=== PATIENT | female | born 1990 | race Caucasian/White ===

== ENCOUNTER 2022-08-07 13:14 | Inpatient (IN) ==
[2022-08-07] MEDS ORDERED: LIDOCAINE 1% LOCAL 20 ML VIAL INFIL PRN (13:26)
[2022-08-07] MEDS ORDERED: OXYTOCIN 30 UNITS/500 ML BAG IV PRN ×2 (13:26→16:08)
[2022-08-07] MEDS: LACTATED RINGER'S 1,000 ML IV PRN ×2 (13:48→14:50)
--- NOTE | 2022-08-07 14:11 | History & Physical Report ---
Date of Service August 07, 2022 Assessment & Plan (1) Encounter for vaginal delivery: Plan: -Patient was instructed to come to L&D floor after having contractions this morning. -At her appointment today patient was 4cm/80%/-2. -Epidural ordered and expect vaginal delivery. Admission and Anticipated Discharge Date Admission Date: August 07, 2022 History of Present Illness Primary Care Provider: MADISON Celaya at 40 weeks 2 days confirmed via LMP. Here for vaginal delivery. She started to have contracts this morning and went to her OBGYN visit with Eron Escalera who instructed the patient to come to the L&D floor. She has some bloody mucus when wiping this morning. She denies any leakage of fluid. Complications with this include patient with h/o scoliosis (able to tolerate epidural G1) and family hx of hypoplastic left heart syndrome( echo WNL) . Has been attending OB appointments regularly. Currently taking no medications. Contractions: yes (this morning) Fluid or Blood loss: bloody mucus Movement: active Labs - Blood type: A+ - Antibody screen: negative - H.3 - Hct: 35.3 - Wbc: 13.9 - Plt: 195 - Rubella: immune - VDRL/RPR: negative - Gonorrhea: negative - Chlamydia: negative - HIV: negative - HbSAg:negative - GBS:negative - Glucose tolerance x 2 Allergies Allergy/AdvReac Type Severity Reaction Status Date / Time cefaclor [From Ceclor] Allergy Intermediate hives Verified 08/07/22 10:16 acetaminophen [From Vicodin] AdvReac vomiting Verified 08/07/22 10:16 cefdinir [From Omnicef] AdvReac vomiting Verified 08/07/22 10:16 hydrocodone [From Vicodin] AdvReac vomiting Verified 08/07/22 10:16 Home Medications Medication Instructions Recorded Confirmed Type prenat.vits,sohan,zwg-pbcd-[id number] 1 tab PO DAILY 02/17/22 08/07/22 History breast pump #1 ea 06/26/22 08/07/22 Rx Patient History Medical History Migraines Scoliosis 18 degree curvature L1-L4, 11 degree curvature T7-T12 Vesico-ureteral reflux Surgical History H/O oral surgery H/O ureter repair bilateral S/P tonsillectomy and adenoidectomy Family History Grandmother (Maternal) Breast cancer Grandfather Lung cancer Grandfather (Paternal) Diabetes Father Diabetes Asthma Dyslipidemia Mother Thyroid disorder Colonic polyp Melanoma Denies family history of Ovarian cancer Social History (Updated 02/17/22 @ 13:24 by Crystal REAL RN) Smoking Status: Never smoker Second Hand Exposure: No; Hx Alcohol Use: No Hx Substance Use: No Preferred Language: Jordanian Communication Ability: Effective [place] Required: No Beliefs That Will Affect Care: None marital status: marital status details: Eliseo Gomez (30) [phone] Current Living Situation: Family Current Living Situation Comment: FOB and 1 child. 2 dogs and 1 cats (FOB doing cat litter) current occupational status: employed current occupation: self employed - [employer] Feels Safe at Home: Yes Safety Concerns: Feels Safe At This Time Assistive Devices: Glasses Review of Systems Denies fever, chills, sweats Denies shortness of breath, difficulty breathing, chest pain, palpitations, chest pressure. Denies breast pain. Denies dysuria. Denies headache or changes in vision. Physical Exam Physical Exam: General: Alert, oriented. No acute distress. Cardiac: Regular rate and rhythm, no murmurs/rubs/gallops. Respiratory: Clear to auscultation bilaterally a/p, no wheezes/rales/rhonchi. No increased work of breathing. Symmetrical chest rise. No respiratory distress. Abdomen: Gravid; normal FHTs; Position: cephalic Pelvic: Dilation 4cm; Effacement 80; Station -[address] Segal Lower Extremities: No lower extremity edema or swelling. No deep calf pain. Dorcas's negative bilaterally Results & Data ([facility]) Vital Signs (Past 12 Hours) Vital Signs Temp Pulse Resp BP Pulse Ox 08/07/22 13:35 36.8 C 18 08/07/22 13:50 99 08/07/22 13:50 82 08/07/22 13:27 97 H 119/83 Code Status & VTE Plan VTE Prophylaxis Plan VTE Prophylaxis will be ordered: No Supervising Physician Co-Signing Physician Notes Resident Physician Supervision Note: I interviewed and examined the patient. Discussed with Dr. Hatfield and agree with findings and plan as documented in the note. Any exceptions or clarifications are listed here: 32yo @ 40 01/02, active labor. Documented By: Diana Pan, Resident Activity Tracking Resident Involvement: Resident Care Provided Care Provided: OB Delivery
[2022-08-07] MEDS ORDERED: ePHEDrine sulfate 50 MG/ML AMP ONE (14:15)
[2022-08-07] MEDS ORDERED: fentaNYL 2MCG/ML ROPIVACAINE 1.25MG/ML 100 ML BAG EPI ONE (14:16)
[2022-08-07] MEDS ORDERED: LIDOCAINE 2%/EPINEPHRINE 1:200,000 20 ML SDV ONE (14:16)
[2022-08-07] MEDS ORDERED: fentaNYL citrate 100 MCG/2 ML VIAL ONE (14:16)
[2022-08-07] MEDS ORDERED: SODIUM CHLORIDE 0.9% INJ 10 ML VIAL ONE (14:16)
[2022-08-07] MEDS ORDERED: BUPIVACAINE 0.25% 30 ML VIAL ONE (14:16)
[2022-08-07 14:19] LABS: Hematocrit (blood only) 35.3 % (34.1-44.9); Hemoglobin 12.3 g/dl (12.0-16.0); Mean Corpuscular Hemoglobin 30.4 pg (25.0-34.0); Mean Corpuscular Hgb Conc 34.8 g/dL (32.0-36.0); Mean Corpuscular Volume 87.4 fL (80.0-100.0); Mean Platelet Volume 10.9 fL (9.4-12.3); Platelet Count 195 K/uL (130-400); RDW Standard Deviation 43.3 fL (36.4-46.3); Red Blood Count 4.04 M/uL (3.93-5.22)
--- NOTE | 2022-08-07 14:39 | Anesthesiology Consultation ---
Date of Service August 07, 2022 Assessment & Plan Chart Review Chart Review: Patient NOT seen in Pre Admission Testing and Acceptable Risk for Labor Epidural Consults Requested none ASA ASA2 Proposed Anesthesia Anesthesia Type: Labor Epidural and CSE Risk / Benefits Reviewed With: PT / POA / Parent / Guardian, Accepts Plan and Informed Consent Obtained History Height/Weight Height: 5 ft 1 in Weight: 72.121 kg Allergies Allergy/AdvReac Type Severity Reaction Status Date / Time cefaclor [From Ceclor] Allergy Intermediate hives Verified 08/07/22 10:16 acetaminophen [From Vicodin] AdvReac vomiting Verified 08/07/22 10:16 cefdinir [From Omnicef] AdvReac vomiting Verified 08/07/22 10:16 hydrocodone [From Vicodin] AdvReac vomiting Verified 08/07/22 10:16 Medications Home Medications Medication Instructions Recorded Confirmed Last Taken prenat.vits,sohan,suq-dzaw-ljdcj 1 tab PO DAILY 02/17/22 08/07/22 08/06/22 breast pump #1 ea 06/26/22 08/07/22 Unknown NPO Date Last Intake of Fluids: 08/07/22 Time Last Intake of Fluids: 13:00 Date Last Intake of Solids: 08/07/22 Time Last Intake of Solids: 08:00 Past Medical History Medical History Migraines Scoliosis 18 degree curvature L1-L4, 11 degree curvature T7-T12 Vesico-ureteral reflux Exercise / Class Metabolic Activity II 4-5 Yardwork/Stairs/Walk up hill Past Family History Family History Grandmother (Maternal) Breast cancer Grandfather Lung cancer Grandfather (Paternal) Diabetes Father Diabetes Asthma Dyslipidemia Mother Thyroid disorder Colonic polyp Melanoma Denies family history of Ovarian cancer Past Surgical History Surgical History H/O oral surgery H/O ureter repair bilateral S/P tonsillectomy and adenoidectomy Past Anesthesia History No Hx of Anesthesia Complications and No Family Hx of Anesthesia Complications History of PONV No Hx of PONV and No Hx of Motion Sickness Social History Smoking Status: Never smoker Hx Alcohol Use: No Hx Substance Use: No Review of Systems no chest pain or sob Physical Exam Vital Signs Last Vital Signs Temp 36.8 C 08/07/22 13:35 Pulse 88 08/07/22 14:35 Resp 18 08/07/22 13:35 BP 119/83 08/07/22 13:27 Pulse Ox 99 08/07/22 14:35 ENMT Mouth: no TMJ abnormality Thyromental Distance: > or= 3.5 Finger Breadths Mallampati Class: II Neck normal visual inspection Respiratory normal respiratory effort Auscultation: lungs clear to auscultation bilaterally Cardiovascular Rate/Rhythm: regular rate and regular rhythm Musculoskeletal Spine: normal cervical ROM Neurologic moves all extremities Psychiatric Orientation: alert and oriented x 3 Testing Laboratory Results 08/07/22 14:00
--- NOTE | 2022-08-07 15:32 | Labor Progress Brief Note ---
Date of Service August 07, 2022 Subjective Comfortable with epidural. Had FHT decel lasting a few minutes, then returned to baseline. Combine Q 2 SVE complete/bulging membranes AROM performed, thick meconium. Cervix complete, +1 station. Anticipate . Assessment & Plan Admission and Anticipated Discharge Date Admission Date: August 07, 2022 Results & Data ([facility]) Vital Signs (Past 12 Hours) Vital Signs Temp Pulse Resp BP Pulse Ox 08/07/22 13:35 36.8 C 18 08/07/22 15:26 100 08/07/22 15:26 89 08/07/22 15:26 104 H 08/07/22 15:26 116/75 08/07/22 15:23 96 H 08/07/22 15:23 128/77 08/07/22 15:21 100 08/07/22 15:21 79 08/07/22 15:20 91 08/07/22 15:20 96 H 08/07/22 15:16 100 08/07/22 15:16 94 H 08/07/22 15:17 93 H 08/07/22 15:17 110/72 08/07/22 15:11 95 08/07/22 15:11 85 08/07/22 15:11 88 08/07/22 15:11 107/68 08/07/22 15:10 91 08/07/22 15:10 78 08/07/22 15:09 76 08/07/22 15:09 109/72 08/07/22 15:06 96 08/07/22 15:06 87 08/07/22 15:07 85 08/07/22 15:07 106/68 08/07/22 15:05 88 08/07/22 15:05 113/74 08/07/22 15:03 64 08/07/22 15:03 109/68 08/07/22 15:00 100 08/07/22 15:00 81 08/07/22 15:01 92 H 08/07/22 15:01 110/65 08/07/22 14:55 100 08/07/22 14:55 89 08/07/22 14:50 100 08/07/22 14:50 90 08/07/22 14:45 100 08/07/22 14:45 108 H 08/07/22 14:43 92 08/07/22 14:43 98 H 08/07/22 14:40 100 08/07/22 14:40 89 08/07/22 14:35 99 08/07/22 14:35 88 08/07/22 14:30 100 08/07/22 14:30 93 H 08/07/22 14:25 100 08/07/22 14:25 89 08/07/22 14:20 99 08/07/22 14:20 82 08/07/22 14:18 89 L 08/07/22 14:18 107 H 08/07/22 14:15 100 08/07/22 14:15 101 H 08/07/22 14:10 100 08/07/22 14:10 93 H 08/07/22 14:05 100 08/07/22 14:05 83 08/07/22 14:00 100 08/07/22 14:00 96 H 08/07/22 13:55 100 08/07/22 13:55 84 08/07/22 13:50 99 08/07/22 13:50 82 08/07/22 13:27 97 H 119/83 Coding Level of Care Code None
[2022-08-07] MEDS ORDERED: HYDROCORTISONE ACETATE 25 MG SUPP PR PRN (16:08)
[2022-08-07] MEDS ORDERED: ACETAMINOPHEN 325 MG TAB PO PRN (16:08)
[2022-08-07] MEDS ORDERED: DIPHTHERIA/TETANUS/PERTUSSIS 0.5 ML SYR/VIAL IM ONE (16:08)
[2022-08-07] MEDS ORDERED: BENZOCAINE 20% AER SPR 82.5 GM CAN EXT PRN (16:08)
[2022-08-07] MEDS ORDERED: bisacodyL 10 MG SUPP PR PRN (16:08)
--- NOTE | 2022-08-07 16:09 | Delivery Summary ---
Vaginal Delivery Summary Date of Service August 07, 2022 Vaginal Delivery Summary [facility] Vaginal Delivery Summary: Pre-delivery diagnoses: 32yo @ 40 01/02, spontaneous labor Post-delivery diagnoses: same Procedure: spontaneous vaginal delivery, manual extraction of placenta Surgeon: Diana Pan DO Complications: none Findings: Viable female . Apgars: . Weight pending, please see nursery records. Estimated blood loss: 300ml Description of delivery: The patient progressed to complete with epidural anesthesia. She then began to push. She spontaneously vaginally delivered a viable from the cephalic presentation. The head delivered in OA position. The anterior shoulder delivered, followed by the posterior shoulder, followed by the body. No nuchal noted. The baby was placed on mother's abdomen and a spontaneous cry was heard. Delayed cord clamping was employed, and the cord was doubly clamped and cut. Cord blood was obtained. During attempt at placental delivery, umbilical cord avulsed from placenta. Manual extraction was performed to deliver an intact placenta with a 3-vessel cord. The uterus and vagina were swept of clots and debris. Bladder drained of urine. IV pitocin was given. The uterus became firm. The cervix, vagina, and perineum were inspected and no lacerations were noted. Excellent hemostasis was observed. Will give ancef 1g q8h x 24h for manual extraction. The mother and baby are recovering in stable and good condition in the room. Sponge and instrument counts were correct x 2. Diana Pan DO [facility] Vaginal Delivery Charge Vaginal Delivery Codes: 97283 global code for the antepartum, delivery, and post- Delivery Type Details: [facility]
[2022-08-07] MEDS: CLINDAMYCIN/D5W 600 MG/50 ML BAG IV SCH (17:06)
--- NOTE | 2022-08-07 17:25 | Anesthesia Procedure Note ---
Date of Service August 07, 2022 Anesthesia Post Epidural Note Vital Signs Vital Signs: Temp Pulse Resp BP Pulse Ox 37.0 C 103 H 18 128/76 100 08/07/22 16:00 08/07/22 17:15 08/07/22 17:00 08/07/22 17:15 08/07/22 15:51 Notes Mental Status: alert / awake / arousable and participated in evaluation Nausea / Vomiting: adequately controlled Pain: adequately controlled Airway Patency, RR, SpO2: stable & adequate BP & HR: stable & adequate Hydration State: stable & adequate Neuraxial Anesthesia: was administered and sensory block is resolving Anesthetic Complications: no major complications apparent and Pt Satisfied with anesthetic care Epidural: Removed without complications and With tip intact
[2022-08-07] MEDS: IBUPROFEN 600 MG TAB PO PRN (18:10)
[2022-08-07] MEDS: DOCUSATE SODIUM 100 MG CAP PO SCH (20:22)
[2022-08-08] MEDS: CLINDAMYCIN/D5W 600 MG/50 ML BAG IV SCH ×2 (00:32→07:27)
[2022-08-08] MEDS: IBUPROFEN 600 MG TAB PO PRN (02:27)
[2022-08-08 06:26] LABS: Hematocrit (blood only) 31.2 % (34.1-44.9); Hemoglobin 10.9 g/dl (12.0-16.0); Mean Corpuscular Hemoglobin 30.3 pg (25.0-34.0); Mean Corpuscular Hgb Conc 34.9 g/dL (32.0-36.0); Mean Corpuscular Volume 86.7 fL (80.0-100.0); Mean Platelet Volume 10.4 fL (9.4-12.3); Platelet Count 184 K/uL (130-400); RDW Coefficient of Variation 13.8 % (11.5-14.5); RDW Standard Deviation 43.3 fL (36.4-46.3); White Blood Count 15.58 K/ul (4.8-10.8)
--- NOTE | 2022-08-08 06:39 | Obstetrical Progress Note ---
Date of Service <Jay Hatfield DO - Last Filed: 08/08/22 07:18> August 08, 2022 Assessment & Plan <Jay Hatfield DO - Last Filed: 08/08/22 07:18> (1) Encounter for care and examination after delivery: - Feels well today. Eating well, voiding well, ambulating well. - Pain well controlled with ibuprofen 600mg Q4H PRN - Routine care -- OOB, ambulation, diet progression as tolerated - After discharge will have 6 week follow-up with Dr. Pan - Patient is able to be D/C today. <Diana Pan, DO - Last Filed: 08/08/22 07:19> (1) Encounter for care and examination after delivery: Subjective <Jay Hatfield DO - Last Filed: 08/08/22 07:18> Ambulation: ambulating normally Voiding: no voiding problems Passing Gas:: Yes Diet Tolerance:: regular diet Lochia:: Small Feeding Type:: breast feeding Current Pain Level(1-10): 3 Patient is a 32 y/o female who is now PPD # 1 following spontaneous vaginal delivery at 40 weeks and 2 days. Reports feeling well overall this morning. Mild abdominal cramping & 3/10 pain well managed on analgesics. Voiding well. Tolerating meals overnight and able to ambulate some. Able to pass gas. Has some persistent lochia with some improvement this morning. Currently breast feeding. Review of Systems Denies fever, chills, sweats Denies shortness of breath, difficulty breathing, chest pain, palpitations, chest pressure. Denies breast pain. Denies dysuria. Denies headache or changes in vision. Physical Exam <Jay Hatfield DO - Last Filed: 08/08/22 07:18> General: Alert, oriented. No acute distress. Cardiac: Regular rate and rhythm, no murmurs/rubs/gallops. Respiratory: Clear to auscultation bilaterally a/p, no wheezes/rales/rhonchi. No increased work of breathing. Symmetrical chest rise. No respiratory distress. Abdomen: Soft, nontender, nondistended. Bowel sounds present. Uterus: Uterine fundus firm, palpable 2 cm below umbilicus. Lower Extremities: No lower extremity edema or swelling. No deep calf pain. Dorcas's negative bilaterally. Results & Data ([facility]) <Jay Hatfield DO - Last Filed: 08/08/22 07:18> Vital Signs (Past 12 Hours) Vital Signs Temp Pulse Resp BP BP Pulse Ox O2 Del Method 08/08/22 03:50 36.9 C 77 18 111/73 100 Room Air 08/08/22 00:20 36.8 C 77 18 103/69 96 Room Air 08/07/22 20:10 37.0 C 93 H 18 110/76 98 Room Air <Diana Pan, - Last Filed: 08/08/22 07:19> Co-Signing Physician Notes Resident Physician Supervision Note: I was present with Dr. Hatfield during the history and exam. I discussed the case with the resident and agree with the findings and plan as documented in the note. Any exceptions or clarifications are listed here: PPD#1 doing well, desires DC home. Reviewed instructions. Documented By: Diana Pan DO Resident Activity Tracking <Jay Hatfield DO - Last Filed: 08/08/22 07:18> Resident Involvement: Resident Care Provided Care Provided: OB Delivery
[2022-08-08] MEDS: DOCUSATE SODIUM 100 MG CAP PO SCH (07:27)
[2022-08-08] MEDS ORDERED: PRENATAL VITAMIN 1 TAB PO SCH (08:00)
[2022-08-08] MEDS ORDERED: bisacodyL 5 MG TABEC PO SCH (20:00)
== END 2022-08-08 18:30 | disposition home or self-care (01) | DRG 807 ==
LOC: OPB 13:14 → 4S1 13:15 → 4E2 18:27